=== PATIENT | female | born 1990 | race Two or more races ===

== ENCOUNTER 2021-11-03 07:38 | Emergency (ER) | payer OTHER ==
[~2021-11-03] VITALS: Ht 167.6 cm; Wt 59.0 kg
[2021-11-03 08:27] LABS: Urine Bacteria FEW /hpf (None Seen); Urine Blood 3+ /uL (Negative); Urine Specific Gravity 1.005 (1.001-1.035); Urine WBC 265 /hpf (0 - 5)
[2021-11-03 09:24] VITALS: BP 119/63
[2021-11-03] MEDS ORDERED: SULF800T7 PO ×2 (09:29→12:28)
[2021-11-03] MEDS ORDERED: cefTRIAXone SOD 1,000 MG VL IM ONE (09:30)
== END 2021-11-03 10:05 | disposition home or self-care (01) ==
LOC: ER 07:38
DX: N39.0 Urinary tract infection, site not specified (principal); Z32.02 Encounter for pregnancy test, result negative
CPT/HCPCS: 81001; 81025; 96372; 99283; J0696